=== PATIENT | male | born 1980 | race Caucasian/White ===

== ENCOUNTER 2024-04-27 14:46 | Emergency (ER) | payer OTHER ==
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
[2024-04-27 15:00] VITALS: BP 127/70; O2SAT 95
[2024-04-27] MEDS: BACITRACIN ZINC OINT 1 PACKET TOP STA (15:36)
[2024-04-27] MEDS: SULFAMETH/TRIMETH DS 800/160 MG TABLET PO STA (15:37)
== END 2024-04-27 16:03 | disposition home or self-care (01) ==
LOC: ED 14:46
DX: Z02.89 Encounter for other administrative examinations (principal); S90.512A Abrasion, left ankle, initial encounter; S50.812A Abrasion of left forearm, initial encounter; S69.91XA Unspecified injury of right wrist, hand and finger(s), initial encounter; S61.431A Puncture wound without foreign body of right hand, initial encounter; S61.011A Laceration without foreign body of right thumb without damage to nail, initial encounter; L03.114 Cellulitis of left upper limb; Y35.93XA Legal intervention, means unspecified, suspect injured, initial encounter; Z59.00 Homelessness unspecified
CPT/HCPCS: 99283; A9270